=== PATIENT | female | born 1995 | race Two or more races ===

== ENCOUNTER 2021-04-07 06:49 | Emergency (ER) | payer OTHER ==
[2021-04-07] MEDS ORDERED: NAPROXEN 375 MG TABLET PO ONE (07:07)
[2021-04-07 07:11] VITALS: BP 118/77; PULSE 86; TEMP 99.6; BMI 20.6
[2021-04-07] MEDS ORDERED: NAPROXEN 375 MG TABLET ONE (07:12)
== END 2021-04-07 08:20 | disposition home or self-care (01) ==
LOC: FER 06:49
DX: S93.601A Unspecified sprain of right foot, initial encounter (principal)
CPT/HCPCS: 73630-TC-RT-FY; 99284-25